=== PATIENT | male | born 1935 | race Caucasian/White ===

== ENCOUNTER 2016-09-04 14:27 | Inpatient (IN) | payer OTHER ==
[~2016-09-04] VITALS: Ht 167.6 cm; Wt 75.7 kg
[2016-09-04] VITALS (11 sets, daily range): BP systolic 124–176; BP diastolic 49–85
[~2016-09-04 14:27] MED LIST: GLIP-116 PO; LIS10T PO; METF-490 PO; SIMV-8 PO
[2016-09-04] MEDS ORDERED: HEPARIN SODIUM (PORCINE) 5000 UNITS/ML 1ML VIAL ONE (15:01)
[2016-09-04] MEDS ORDERED: SODIUM CHLORIDE 0.9% 1,000 ML IVB ONE (15:06)
[2016-09-04 15:12] LABS: Basophils # (auto) 0.1 uL; Basophils % (auto) 0.6 % (0.0-2.0); Eosinophils # (auto) 0.2 uL; Eosinophils % (auto) 2.5 % (0.0-7.0); Hematocrit 35.5 % (41.0-53.0); Hemoglobin 12.1 g/dL (13.5-17.5); Lymphocytes # (auto) 2.3 uL; Lymphocytes % (auto) 27.9 % (10.0-50.0); Mean Corpuscular Hemoglobin 31.1 pg (28.0-32.0); Mean Corpuscular Hgb Conc. 34.1 g/dL (32.0-36.0); Mean Corpuscular Volume 91.3 fL (80.0-100.0); Mean Platelet Volume 7.4 fL (7.4-10.4); Monocytes # (auto) 0.5 uL; Monocytes % (auto) 6.6 % (0.0-12.0); Neutrophils % (auto) 62.4 % (37.0-80.0); Platelet Count (auto) 277 10^3/uL (140-450); Red Cell Distribution Width 12.8 % (11.6-16.0); White Blood Cell 8.1 10^3/uL (4.4-10.8)
[2016-09-04] MEDS ORDERED: IODIXANOL 320MG/ML 100ML BTL IV ONE (15:22)
[2016-09-04] MEDS ORDERED: LIDOCAINE 2%HCL (LOCAL ANESTH.) INJ 20ML MDV ONE (15:22)
[2016-09-04 15:33] LABS: Albumin 3.5 g/dL (3.4-5.0); BUN/Creatinine Ratio 24.8; Bilirubin, Total 0.3 mg/dL (0.2-1.0); Calcium 8.8 mg/dL (8.5-10.1)
[2016-09-04 15:34] LABS: INR 1.09 (0.9-1.15); Partial Thromboplastin Time 21.9 sec (22.64-33.71); Prothrombin Time 11.2 sec (9.37-12.3)
[2016-09-04 15:50] LABS: B-Type Natriuretic Peptide 35.61 pg/mL (0-100)
[2016-09-04] MEDS ORDERED: ANGIOMAX 250 MG VIAL IV ONE (15:50)
[2016-09-04] MEDS ORDERED: fentaNYL CITRATE 100 MCG/2 ML VL ONE (15:50)
[2016-09-04] MEDS ORDERED: MIDAZOLAM HCL 1MG/1ML-2 ML VIAL ONE (15:50)
[2016-09-04] MEDS ORDERED: SODIUM CHL 0.9% 50 ML ONE (15:51)
[2016-09-04] MEDS ORDERED: ATROPINE SULF 0.5 MG/5ML SYR ONE (15:52)
[2016-09-04] MEDS ORDERED: LABETALOL HCL 5 MG/ML 4ML SYRINGE IV ONE (16:37)
[2016-09-04] MEDS ORDERED: CLOPIDOGREL 300 MG TAB ONE (16:47)
[2016-09-04] MEDS: SOD CHL 0.45% 1,000 ML IV SCH (17:30)
[2016-09-04] MEDS ORDERED: MORPHINE SULF INJ 2 MG/ML SYRINGE 1ML IV PRN (17:30)
[2016-09-04] MEDS ORDERED: HYDROcodone-ACET 5/325MG TAB PO PRN (17:30)
[2016-09-04] MEDS ORDERED: CLOPIDOGREL 300 MG TAB PO ONE (17:30)
[2016-09-04] MEDS ORDERED: NITROGLYCERIN 0.4 MG SL TAB SL PRN (17:30)
[2016-09-04] MEDS ORDERED: DEXTROSE (50%) 50ML SYRG IV PRN (17:30)
[2016-09-04] MEDS ORDERED: ALPRAZolam 0.5 MG TAB PO PRN (17:30)
[2016-09-04] MEDS ORDERED: CLOPIDOGREL BISULFATE 75 MG TAB PO ONE (17:30)
[2016-09-04] MEDS ORDERED: ASPirin-EC 81 mg tab PO ONE (17:45)
[2016-09-04] MEDS: InsuLIN REG 1unit/0.01ml Soln (100units/ml) SC SCH ×2 (18:28→23:01)
[2016-09-04] MEDS: ACCU-CHEK COMFORT CURVE STRIP VI SCH ×2 (18:28→22:39)
[2016-09-04] MEDS: FAMOTIDINE 20 MG TAB PO SCH (22:37)
[2016-09-04] MEDS: METOPROLOL TARTRATE 25 MG TAB PO SCH (22:38)
[2016-09-05] VITALS (45 sets, daily range): BP systolic 100–138; BP diastolic 52–90
[2016-09-05] MEDS: ACCU-CHEK COMFORT CURVE STRIP VI SCH ×4 (06:12→22:15)
[2016-09-05] MEDS: InsuLIN REG 1unit/0.01ml Soln (100units/ml) SC SCH ×4 (06:14→22:16)
[2016-09-05] MEDS: SOD CHL 0.45% 1,000 ML IV SCH (07:16)
[2016-09-05] MEDS: ASPirin-EC 81 mg tab PO SCH (09:53)
[2016-09-05] MEDS: METOPROLOL TARTRATE 25 MG TAB PO SCH (09:54)
[2016-09-05] MEDS: FAMOTIDINE 20 MG TAB PO SCH ×2 (09:54→22:15)
[2016-09-05] MEDS: CLOPIDOGREL BISULFATE 75 MG TAB PO SCH (09:54)
[2016-09-05] MEDS ORDERED: LIDOCAINE 2%HCL (LOCAL ANESTH.) INJ 20ML MDV ONE (11:30)
[2016-09-05] MEDS ORDERED: IOHEXOL 350 MG/ML 100ML IJ ONE (11:30)
[2016-09-05] MEDS ORDERED: ANGIOMAX 250 MG VIAL IV ONE (11:35)
[2016-09-05] MEDS ORDERED: fentaNYL CITRATE 100 MCG/2 ML VL ONE (11:36)
[2016-09-05] MEDS ORDERED: SODIUM CHL 0.9% 50 ML ONE (11:36)
[2016-09-05] MEDS ORDERED: MIDAZOLAM HCL 1MG/1ML-2 ML VIAL ONE (11:36)
[2016-09-05] MEDS ORDERED: EPTIFIBATIDE INJ (2MG/ML) 10ML VIAL IV ONE (11:37)
[2016-09-05 12:02] LABS: Basophils # (auto) 0 uL; Basophils % (auto) 0.4 % (0.0-2.0); Eosinophils # (auto) 0.2 uL; Eosinophils % (auto) 2.6 % (0.0-7.0); Hematocrit 34.1 % (41.0-53.0); Hemoglobin 11.7 g/dL (13.5-17.5); Lymphocytes # (auto) 1.5 uL; Lymphocytes % (auto) 22.1 % (10.0-50.0); Mean Corpuscular Hemoglobin 31.3 pg (28.0-32.0); Mean Corpuscular Hgb Conc. 34.4 g/dL (32.0-36.0); Mean Corpuscular Volume 90.9 fL (80.0-100.0); Mean Platelet Volume 7.2 fL (7.4-10.4); Monocytes # (auto) 0.5 uL; Monocytes % (auto) 7.4 % (0.0-12.0); Neutrophils # (auto) 4.6 uL; Neutrophils % (auto) 67.5 % (37.0-80.0); Platelet Count (auto) 251 10^3/uL (140-450); Red Cell Distribution Width 12.8 % (11.6-16.0); White Blood Cell 6.9 10^3/uL (4.4-10.8)
[2016-09-05 12:26] LABS: Calcium 8.8 mg/dL (8.5-10.1); Potassium 4.5 mmol/L (3.5-5.1)
[2016-09-05] MEDS ORDERED: ATROPINE SULF 0.5 MG/5ML SYR ONE (13:45)
[2016-09-05] MEDS ORDERED: ATROPINE SULF 0.5 MG/5ML SYR IV ONE (14:00)
[2016-09-05] MEDS ORDERED: DOPamine 1600MCG/ML 250 ML IV SCH (14:00)
[2016-09-05] MEDS: ONDANSETRON HCL 4 MG/2 ML VIAL IV PRN (15:20)
[2016-09-06] VITALS (20 sets, daily range): BP systolic 91–125; BP diastolic 38–76
[2016-09-06] MEDS: ACCU-CHEK COMFORT CURVE STRIP VI SCH ×2 (06:42→12:26)
[2016-09-06] MEDS: InsuLIN REG 1unit/0.01ml Soln (100units/ml) SC SCH ×2 (06:43→12:26)
[2016-09-06] MEDS: ONDANSETRON HCL 4 MG/2 ML VIAL IV PRN (09:09)
[2016-09-06] MEDS: FAMOTIDINE 20 MG TAB PO SCH (09:49)
[2016-09-06] MEDS: CLOPIDOGREL BISULFATE 75 MG TAB PO SCH (09:49)
[2016-09-06] MEDS: ASPirin-EC 81 mg tab PO SCH (09:49)
[2016-09-06] MEDS ORDERED: MECLIZINE HCL 25 MG TAB PO PRN (11:00)
== END 2016-09-06 14:00 | disposition home or self-care (01) | DRG 246 ==
LOC: EDBD 14:27 → ER 14:31 → CATH 15:17 → ICU WEST 15:18
PROVIDERS: ADMIT Specialist; ATTEND Internal Medicine Geriatric Medicine
PROC: 027034Z Dilation of Coronary Artery, One Artery with Drug-eluting Intraluminal Device, Percutaneous Approach (ICD-10-PCS; principal; 2016-09-04)
PROC: 4A023N7 Measurement of Cardiac Sampling and Pressure, Left Heart, Percutaneous Approach (ICD-10-PCS; 2016-09-04)
PROC: B2111ZZ Fluoroscopy of Multiple Coronary Arteries using Low Osmolar Contrast (ICD-10-PCS; 2016-09-04)
PROC: B41F1ZZ Fluoroscopy of Right Lower Extremity Arteries using Low Osmolar Contrast (ICD-10-PCS; 2016-09-04)
PROC: 027135Z Dilation of Coronary Artery, Two Arteries with Two Drug-eluting Intraluminal Devices, Percutaneous Approach (ICD-10-PCS; 2016-09-05)
DX: I25.10 Atherosclerotic heart disease of native coronary artery without angina pectoris (principal); I21.19 ST elevation (STEMI) myocardial infarction involving other coronary artery of inferior wall; J44.9 Chronic obstructive pulmonary disease, unspecified; F17.200 Nicotine dependence, unspecified, uncomplicated; E11.9 Type 2 diabetes mellitus without complications; K21.9 Gastro-esophageal reflux disease without esophagitis; I10 Essential (primary) hypertension; H81.10 Benign paroxysmal vertigo, unspecified ear; E78.5 Hyperlipidemia, unspecified; Z87.442 Personal history of urinary calculi; Z95.5 Presence of coronary angioplasty implant and graft; Z90.49 Acquired absence of other specified parts of digestive tract; Z82.49 Family history of ischemic heart disease and other diseases of the circulatory system; Z83.3 Family history of diabetes mellitus; Z79.82 Long term (current) use of aspirin
CPT/HCPCS: 36415; 71010; 80048; 80053; 82962; 83735; 83880; 84443; 84484; 85025; 85049; 85610; 85730; 87081; 92928; 92929; 93005; 93458; 96374; C1887; J0461; J2250; J2405; J3490; Q9967

== ENCOUNTER 2017-01-11 22:22 | Emergency (ER) | payer OTHER ==
[~2017-01-11] VITALS: Ht 167.6 cm; Wt 77.1 kg
[2017-01-11 22:49] VITALS: BP 132/75
[2017-01-11 23:14] LABS: Basophils # (auto) 0.1 uL; Basophils % (auto) 0.8 % (0.0-2.0); Eosinophils # (auto) 0.2 uL; Eosinophils % (auto) 3.4 % (0.0-7.0); Hemoglobin 11.4 g/dL (13.5-17.5); Lymphocytes # (auto) 1.2 uL; Lymphocytes % (auto) 17.3 % (10.0-50.0); Mean Corpuscular Hemoglobin 31.8 pg (28.0-32.0); Mean Corpuscular Hgb Conc. 34.4 g/dL (32.0-36.0); Mean Corpuscular Volume 92.4 fL (80.0-100.0); Mean Platelet Volume 6.9 fL (7.4-10.4); Monocytes # (auto) 0.5 uL; Monocytes % (auto) 6.7 % (0.0-12.0); Neutrophils # (auto) 4.8 uL; Neutrophils % (auto) 71.8 % (37.0-80.0); Platelet Count (auto) 263 10^3/uL (140-450); Red Cell Distribution Width 13.3 % (11.6-16.0); White Blood Cell 6.7 10^3/uL (4.4-10.8)
[2017-01-11 23:41] LABS: Albumin 3.1 g/dL (3.4-5.0); Anion Gap 10 (5-15); Aspartate Aminotransferase 34 U/L (15-37); BUN/Creatinine Ratio 24.3; Blood Urea Nitrogen 26 mg/dL (7-18); Calcium 8.5 mg/dL (8.5-10.1); Carbon Dioxide 24 mmol/L (21-32); Chloride 111 mmol/L (98-107); GFR African American 85 mL/min; GFR Non-African American 70 mL/min; Glucose 151 mg/dL (74-106); Potassium 3.9 mmol/L (3.5-5.1); Sodium 145 mmol/L (136-145)
[2017-01-11 23:47] LABS: Alkaline Phosphatase 74 U/L (45-117); Bilirubin, Total 0.4 mg/dL (0.2-1.0); Total Protein 6.8 g/dL (6.4-8.2)
== END 2017-01-11 23:31 | disposition left against medical advice (07) ==
LOC: EDBD 22:22 → ER 22:24
DX: R53.1 Weakness (principal); R61 Generalized hyperhidrosis; Z53.21 Procedure and treatment not carried out due to patient leaving prior to being seen by health care provider
CPT/HCPCS: 36415; 80053; 84484; 85025

== ENCOUNTER 2017-07-28 07:28 | Day surgery (SDC) | payer OTHER ==
[~2017-07-28] VITALS: Ht 167.6 cm; Wt 82.1 kg
[~2017-07-28 07:28] MED LIST changes: +ASPI81TA27 PO
[2017-07-28] MEDS ORDERED: ceFAZolin 1GM/50ML 50 ML IV ONE (07:41)
[2017-07-28] MEDS ORDERED: fentaNYL CITRATE 100 MCG/2 ML VL ONE (08:44)
[2017-07-28] MEDS ORDERED: MIDAZOLAM HCL 1MG/1ML-2 ML VIAL ONE (08:45)
[2017-07-28] MEDS ORDERED: SODIUM CHLORIDE LOCK 10 ML ONE (08:45)
[2017-07-28] MEDS ORDERED: ROCURONIUM 10MG/ML 10ML VIAL IV ONE (08:45)
[2017-07-28] MEDS ORDERED: ETOMIDATE (2MG/ML) 20ML VIAL IV ONE (08:45)
[2017-07-28] MEDS ORDERED: GLYCOPYRROLATE 0.2 MG/ML 1ML VIAL ONE (08:45)
[2017-07-28] MEDS ORDERED: NEOSTIGMINE 1 MG/ML INJ (10mg/10ML VIAL) ONE (08:45)
[2017-07-28] MEDS ORDERED: BUPIVACAINE W/ EPINEPH 0.25% INJ 50ML MDV ONE (09:44)
[2017-07-28] MEDS ORDERED: METOCLOPRAMIDE HCL 5MG/ml INJ 2ml VIAL IV ONE (10:15)
[2017-07-28] MEDS ORDERED: ACCU-CHEK COMFORT CURVE STRIP VI ONE (10:15)
[2017-07-28] MEDS ORDERED: fentaNYL CITRATE 100 MCG/2 ML VL IV ONE (11:00)
[2017-07-28 11:38] VITALS: BP 156/81
== END 2017-07-28 11:46 | disposition home or self-care (01) ==
LOC: SUR 07:28
PROVIDERS: ATTEND Urology
DX: N40.1 Benign prostatic hyperplasia with lower urinary tract symptoms (principal); N47.1 Phimosis; N32.0 Bladder-neck obstruction; J44.9 Chronic obstructive pulmonary disease, unspecified; Z98.61 Coronary angioplasty status; N18.3 Chronic kidney disease, stage 3 (moderate); E11.22 Type 2 diabetes mellitus with diabetic chronic kidney disease; I12.9 Hypertensive chronic kidney disease with stage 1 through stage 4 chronic kidney disease, or unspecified chronic kidney disease; E78.5 Hyperlipidemia, unspecified; C41.9 Malignant neoplasm of bone and articular cartilage, unspecified; F17.210 Nicotine dependence, cigarettes, uncomplicated; F10.99 Alcohol use, unspecified with unspecified alcohol-induced disorder
CPT/HCPCS: 52601; 54150; 82962; J0690; J2250; J2765; J3010; 88341